=== PATIENT | female | born 1945 | race African-American/Black ===

== ENCOUNTER 2017-08-09 07:50 | Outpatient (CLI) | payer MEDICARE ==
[2017-08-09 08:39] LABS: ADD MAN DIFF? NO
[2017-08-09 09:06] LABS: BASO % 0 % (0-3); EOS # 0.1 x10^3/uL (0.0-0.7); EOS % 2 % (0-3); HEMATOCRIT 32.9 % (36.0-47.0); HEMOGLOBIN 10.7 g/dL (12.0-15.5); LYMPH # 2.1 x10^3/uL (1.0-4.8); LYMPH % 31 % (24-48); MEAN CORPUSCULAR HEMOGLOBIN 27 pg (25-35); MEAN CORPUSCULAR HGB CONC 33 g/dL (31-37); MEAN CORPUSCULAR VOLUME 84 fL (79-100); MONO # 0.4 x10^3/uL (0.0-1.1); MONO % 6 % (0-9); NEUT # 4.1 x10^3uL (1.8-7.7); NEUT % 61 % (31-73); PLATELET COUNT 239 x10^3/uL (140-400); RED BLOOD COUNT 3.91 x10^6/uL (3.50-5.40); RED CELL DISTRIBUTION WIDTH 18.1 % (11.5-14.5); WHITE BLOOD COUNT 6.7 x10^3/uL (4.0-11.0)
[2017-08-09 09:15] LABS: PROTHROMBIN TIME PATIENT 12.4 SEC (11.7-14.0)
[2017-08-09] MEDS ORDERED: LIDOCAINE WITH 8.4% SOD BICARB 3 ML DISP.SYRIN. (09:58)
[2017-08-09] MEDS ORDERED: MIDAZOLAM HCL/PF 2 MG/2 ML VIAL. (10:09)
[2017-08-09] MEDS ORDERED: fentaNYL PF VIAL 100 MCG/2 ML VIAL (10:09)
[2017-08-09] MEDS ORDERED: FLUMAZENIL 0.5 MG/5 ML VIAL. IV (10:09)
[2017-08-09] MEDS ORDERED: NALOXONE 0.4 MG/ML VIAL. (10:09)
[2017-08-09] MEDS: LIDOCAINE WITH 8.4% SOD BICARB 3 ML DISP.SYRIN. IJ (10:30)
[2017-08-09] MEDS: MIDAZOLAM HCL/PF 2 MG/2 ML VIAL. IV (10:30)
[2017-08-09] MEDS: fentaNYL PF VIAL 100 MCG/2 ML VIAL IV (10:30)
== END 2017-08-09 11:40 | disposition home or self-care (01) ==
LOC: INTRAD 07:50
DX: C90.00 Multiple myeloma not having achieved remission (principal); I10 Essential (primary) hypertension; E78.00 Pure hypercholesterolemia, unspecified; E07.9 Disorder of thyroid, unspecified; Z90.710 Acquired absence of both cervix and uterus; Z85.3 Personal history of malignant neoplasm of breast; Z98.890 Other specified postprocedural states; Z79.899 Other long term (current) drug therapy; Z88.0 Allergy status to penicillin; Z88.6 Allergy status to analgesic agent; Z91.040 Latex allergy status
CPT/HCPCS: 36415; 38222; 77012; 85025; 85610; 88184; 88185; 88237; 99152; J2250; J3010

== ENCOUNTER → 2017-11-29 | Outpatient (CLI) | payer MEDICARE | END | disposition home or self-care (01) | LOC: PETSC 07:12 | DX: C90.00 Multiple myeloma not having achieved remission (principal); I70.0 Atherosclerosis of aorta; K44.9 Diaphragmatic hernia without obstruction or gangrene; I10 Essential (primary) hypertension; E78.00 Pure hypercholesterolemia, unspecified; Z85.3 Personal history of malignant neoplasm of breast | CPT/HCPCS: 78815; A9552 ==

== ENCOUNTER → 2018-04-10 | Outpatient (CLI) | payer MEDICARE ==
[2017-08-09 11:35] VITALS: BP 119/70
[~2018-04-10] MED LIST: CHOL10003 PO; LETR2.5T18 PO; LOSA100T7 PO
--- NOTE | 2018-04-11 11:53 | SLEEP ---
DATE OF STUDY: 04/10/2018 HOME SLEEP STUDY HISTORY: The patient is a 73 years old who weighs 242 pounds and 64 inches tall with a BMI of 41.5. The patient's Hopewell score was 3. The patient underwent home sleep study performed by [facility]. Total recording time was 620 minutes. During the night study, the patient had 271 obstructive apneas, 1 central apnea and 43 mixed apneas and 199 hypopneas. The patient's apnea hypopnea index was 55 per hour. No supine sleep seen. Nocturnal oximetry study revealed an average oxygen saturation of 92% with the lowest of 64%. 38 minutes were spent in oxygen saturation less than 85% and 87 minutes with oxygen saturation less than 90%. Mean heart rate was 94 beats per minute with a maximum of 128 beats per minute. IMPRESSION: 1. Severe sleep apnea-hypopnea syndrome at an AHI of 55 per hour. 2. Moderate to severe nocturnal hypoxia secondary to obstructive sleep apnea. RECOMMENDATIONS: 1. The patient would benefit from in-lab CPAP titration study. 2. Once optimum CPAP pressure is achieved, then follow up in 4-6 weeks to assess compliance with CPAP and to document clinical improvement. 3. Weight loss is strongly advised. 4. Avoid [employer] depressants. 5. Caution regarding driving until symptoms of sleep apnea resolve with the above recommendations. ROX WILSON MD DR: ELIN/ellen JOB#: [id number] / [id number] ALEXANDRU Burrell MD
== END | disposition home or self-care (01) ==
LOC: RT 09:06
PROVIDERS: ATTEND Internal Medicine Critical Care Medicine
DX: G47.33 Obstructive sleep apnea (adult) (pediatric) (principal); G47.34 Idiopathic sleep related nonobstructive alveolar hypoventilation
CPT/HCPCS: G0399

== ENCOUNTER → 2018-05-15 | Outpatient (CLI) | payer MEDICARE ==
[2017-08-09 11:35] VITALS: BP 119/70
[~2018-05-15] MED LIST changes: +LOSA100T14 PO; -LOSA100T7 PO
--- NOTE | 2018-05-17 09:27 | SLEEP ---
DATE OF STUDY: 05/15/2018 POLYSOMNOGRAM REPORT ATTENDING PHYSICIAN: Dr. Chan. OBJECTIVE: The patient is a 73-year-old female, here for a CPAP titration study. Prior study, 04/10/2018, done at home, showed severe sleep apnea with apnea-hypopnea index of 56 events per hour of sleep. INTERPRETATION: Sleep architecture is characterized by a sleep efficiency of 90% across the 6.8 hours of recording time. Staged volumes are normal for age. Sleep onset latency is 3 minutes. Respiratory monitoring shows a total of 47 events. The patient is started on treatment during the study and on 16 cm of CPAP, no events are observed. Periodic limb movements of sleep occur at the rate of 9 per hour, 1 per hour associated with arousal. No cardiac arrhythmias are observed. IMPRESSION: Successful CPAP titration for obstructive sleep apnea on a RespirImpulseFlyer Dream Zavala nasal pillow, medium size, 16 cm. RECOMMENDATIONS: 1. The patient should be started on this level of CPAP. 2. She should avoid sedatives, alcohol and supine position and pursue weight loss. Thank you for letting us help with the patient's care. KAYLA TRISTAN MD DR: EVANGELIST/ellen JOB#: [id number] / [id number] ALEXANDRU Burrell MD
== END | disposition home or self-care (01) ==
LOC: RT 17:49
PROVIDERS: ATTEND Internal Medicine Critical Care Medicine
DX: G47.33 Obstructive sleep apnea (adult) (pediatric) (principal)
CPT/HCPCS: 95811